=== PATIENT | male | born 1970 | race Caucasian/White ===

== ENCOUNTER → 2020-09-25 | Day surgery (SDC) | payer OTHER ==
[~2020-09-25] MED LIST: D3 DOTS50 MCG PO
[2020-09-25 08:34] LABS: HCT 44.3 % (42.0-52.0); HGB 15.5 g/dl (13.2-18.0); MCH 30.8 pg (25.0-31.0); MCV 88.1 fL (78.0-100.0); MPV 10.1 fL (6.0-9.5); RBC 5.03 M/uL (4.70-6.00); RDW 12.6 % (11.5-14.0); WBC 6.9 K/uL (4.0-10.5)
[2020-09-25 08:53] LABS: ALBUMIN 4.1 g/dL (3.4-5.0); BILIRUBIN - TOTAL 0.9 mg/dL (0.2-1.0); BUN/CREAT RATIO (CALC) 15.5 RATIO; CREATININE 0.97 mg/dL (0.67-1.17); POTASSIUM 3.8 mmol/L (3.5-5.1); TOTAL PROTEIN 8.1 g/dL (6.4-8.2)
== END | disposition home or self-care (01) ==
LOC: FAS 08:02
PROVIDERS: Surgery
DX: Z12.11 Encounter for screening for malignant neoplasm of colon (principal); Z20.822 Contact with and (suspected) exposure to COVID-19; R30.0 Dysuria; R05 Cough; K52.9 Noninfective gastroenteritis and colitis, unspecified
CPT/HCPCS: 36415; 80053; J2250; J2704; J7120